=== PATIENT | female | born 1985 | race Caucasian/White ===

== ENCOUNTER 2022-08-13 01:30 | Inpatient (IN) ==
[2022-08-13] MEDS ORDERED: LIDOCAINE 1% LOCAL 20 ML VIAL INFIL PRN (01:46)
[2022-08-13] MEDS ORDERED: OXYTOCIN 30 UNITS/500 ML BAG IV PRN ×2 (01:46→01:51)
--- NOTE | 2022-08-13 01:49 | History & Physical Report ---
Date of Service August 13, 2022 Assessment & Plan (1) Velamentous insertion of umbilical cord: (2) resulting from in vitro fertilization, antepartum: (3) SROM (spontaneous rupture of membranes): Plan admit for srom and early labor. fetus category one. Has made change from last exam so will allow expectant management for now. pitocin if indicated. Monitor fluid closely. Patient hopes to go natural but open to epidural. anticipate . History of Present Illness Chief Complaint: srom and contractions Primary Care Provider: Veronica Sauer PA-C Patient is a 37yowf with iup at 40 0/7 presents to labor and delivery c/o srom at 10pm, constant gushing. Notes fluid blood tinged. Has also started noting contractions. +fm. Was in earlier yesterday for some prolonged monitoring. Was yanet at that time but not feeling it. and Delivery Plans Velamentous Cord Insertion *Growth US Q4wks @28wks *Weekly NSTs @36wks IVF/ICSI * [facility] [place]- WNL *Growth US Q4wks @28wks *Weekly NSTs @36wks *Weekly ANITA's @36wks(ICSI only) AMA *NSTs weekly at 36weeks Baby asa for ama and ivf Need for Rhogam d/t Rh negative mother -Rhogam given 06/02/2022- OB Labs: Blood Type A Negative 07/02/22 Antibody Screen POSITIVE A 07/02/22 Hemoglobin 11.8 g/dl (12.0-16.0) L 05/20/22 Hematocrit 33.8 % (34.1-44.9) L 05/20/22 Mean Corpuscular Volume 86.6 fL (80.0-100.0) 02/26/22 Platelet Count 305 K/uL (130-400) 02/26/22 Rubella IgG Antibody Immune (Immune) 02/26/22 Rapid Plasma Reagin Nonreactive (Nonreactive) 02/26/22 Hepatitis B Surface Antigen. NON-REACTIVE (NON-REACTIVE) 02/26/22 Hepatitis C Antibody Neg (Neg) 11/25/18 Hepatitis C Antibody (EIA) NON-REACTIVE (NON-REACTIVE) 02/26/22 HIV (1&2) Ag and Ab Confirmation NON-REACTIVE (NON-REACTIVE) 02/26/22 Glucose 1 Hour 50 gm Load 155 mg/dl (70-130) H 05/20/22 OB Optional Labs: Chlamydia trachomatis RNA Not Detected (NotDetected) 02/04/22 Neisseria gonorrhoeae RNA Not Detected (NotDetected) 02/04/22 Thyroid Stimulating Hormone (TSH) 2.250 uIu/ml (0.300-4.500) 08/12/21 Labs Reviewed: neg parent screening at [facility] on embryo negative. gbs negative Allergies Allergy/AdvReac Type Severity Reaction Status Date / Time dermabond Allergy Hives Uncoded 08/12/22 13:14 Home Medications Medication Instructions Recorded Confirmed Type doxylamine-pyridoxine (vit B6) 1 tab PO DAILY 02/02/22 08/12/22 History [Bonjesta] fluoxetine 40 mg capsule 40 mg PO DAILY 02/02/22 08/12/22 History prenat.vits,mark,mtv-ucxa-rhmln 1 tab PO DAILY 02/02/22 08/12/22 History Pepcid 1 tab PO HS 08/12/22 08/12/22 History Patient History Medical History Depression History of chicken pox Surgical History S/P tendon repair Family History Family/Other Asthma Hay fever Mother Hypertension Father Hypertension Depression Grandfather (Paternal) Diabetes Grandmother (Maternal) Skin cancer CHF (congestive heart failure) Denies family history of Ovarian cancer Breast cancer Colorectal cancer Social History Smoking Status: Never smoker Hx Alcohol Use: No Hx Substance Use: No Preferred Language: Kiswahili marital status: marital status details: Yovani Lynch (34) [phone] Current Living Situation: Spouse Current Living Situation Comment: lives with spouse, cats-to use mask and gloves current occupational status: employed 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 thin mec vs slightly dark blood tinged sve--3-4/100/-2 toco--q2-4min efm--130s with mod variability, small accels, no decels Code Status & VTE Plan VTE Prophylaxis Plan VTE Prophylaxis will be ordered: No Coding Level of Care Code None Diagnoses Velamentous insertion of umbilical cord O43.129 resulting from in vitro fertilization, antepartum O09.819 SROM (spontaneous rupture of membranes)
[2022-08-13 02:58] LABS: Hematocrit (blood only) 37.7 % (37.0-47.0); Hemoglobin 13.1 g/dl (12.0-16.0); Mean Corpuscular Hemoglobin 30.7 pg (25.0-34.0); Mean Corpuscular Hgb Conc 34.7 g/dL (32.0-36.0); Mean Corpuscular Volume 88.3 fL (80.0-100.0); Mean Platelet Volume 10.8 fL (9.4-12.4); Platelet Count 240 K/uL (130-400); RDW Coefficient of Variation 13.2 % (11.5-14.5); RDW Standard Deviation 42.1 fL (36.4-46.3); Red Blood Count 4.27 M/uL (4.20-5.40); White Blood Count 14.47 K/ul (4.8-10.8)
[2022-08-13] MEDS: LACTATED RINGER'S 1,000 ML IV PRN ×4 (03:00→13:20)
[2022-08-13] MEDS ORDERED: BUPIVACAINE 0.25% PF 30 ML VIAL ONE (03:11)
[2022-08-13] MEDS ORDERED: ePHEDrine sulfate 50 MG/ML AMP ONE (03:11)
[2022-08-13] MEDS ORDERED: LIDOCAINE 2%/EPINEPHRINE 1:200,000 20 ML PF ONE ×2 (03:11→14:19)
[2022-08-13] MEDS ORDERED: SODIUM CHLORIDE 0.9% PF INJ 10 ML VIAL ONE (03:11)
[2022-08-13] MEDS ORDERED: fentaNYL citrate PF 100 MCG/2 ML VIAL ONE (03:11)
[2022-08-13] MEDS ORDERED: fentaNYL 2MCG/ML ROPIVACAINE 1.25MG/ML 100 ML BAG EPI ONE (03:12)
[2022-08-13] MEDS ORDERED: TERBUTALINE SULFATE 1 MG/ML VIAL SQ ONE (03:21)
--- NOTE | 2022-08-13 03:26 | Labor Progress Brief Note ---
Date of Service August 13, 2022 Subjective Very painful, wants epidural Assessment & Plan (1) SROM (spontaneous rupture of membranes): (2) Velamentous insertion of umbilical cord: (3) resulting from in vitro fertilization, antepartum: Plan resolution of decel. Will get epidural and monitor. Discussed that this happens on occasion and I thought likely from a prolonged ctx or 2-3 right on top of one another. fht reassuring and category one now. Will monitor closely. If this continues/recurs, may need to consider c/s but if isolated, will continue to monitor. Patient expresses understanding. Admission and Anticipated Discharge Date Admission Date: August 13, 2022 Physical Exam Physical Exam: spontaneous decel to 70s that lasted for about 8 minutes until return to baseline. position changed and eventually knee chest. terb given as suspicion of a prolonged contraction. fetus did eventually recover to 130s with mod variability and now looks reassuring. cx--difficult exam secondary to patient discomfort, 3-4/100/-2 toco--difficult tracing now but was q 1-3min Results & Data Vital Signs (Past 12 Hours) Vital Signs Temp Pulse Resp BP Pulse Ox 08/13/22 03:19 103 H 98 08/13/22 03:18 90 129/78 93 08/13/22 03:14 94 H 99 08/13/22 03:09 102 H 99 08/13/22 03:04 98 08/13/22 03:04 77 08/13/22 03:04 80 93 08/13/22 02:00 36.9 C 08/13/22 01:52 82 135/85 08/13/22 01:50 20 Coding Level of Care Code None Diagnoses SROM (spontaneous rupture of membranes) Velamentous insertion of umbilical cord O43.129 resulting from in vitro fertilization, antepartum O09.819
[2022-08-13] MEDS ORDERED: diphenhydrAMINE 50 MG/ML VIAL IV PRN ×2 (03:40→17:59)
[2022-08-13] MEDS ORDERED: NALOXONE HCL 1 MG in SODIUM CHLORIDE 0.9% 1000ML 1,000 ML IV PRN ×2 (03:40→17:59)
[2022-08-13] MEDS ORDERED: ePHEDrine sulfate 50 MG/ML AMP IV PRN ×2 (03:40→17:59)
[2022-08-13] MEDS ORDERED: NALOXONE HCL 0.4 MG/1 ML VIAL/CARP IV PRN ×2 (03:40→17:59)
[2022-08-13] MEDS ORDERED: NALBUPHINE HCL INJ 10 MG/ML AMP IV PRN ×2 (03:40→17:59)
[2022-08-13] MEDS ORDERED: fentaNYL 2MCG/ML ROPIVACAINE 1.25MG/ML 100 ML BAG EPI PRN (03:40)
--- NOTE | 2022-08-13 03:40 | Anesthesiology Consultation ---
Date of Service August 13, 2022 Assessment & Plan ASA ASA2 Proposed Anesthesia Anesthesia Type: Labor Epidural Risk / Benefits Reviewed With: PT / POA / Parent / Guardian, Accepts Plan and Informed Consent Obtained History Height/Weight Height: 5 ft 4 in Weight: 87.09 kg Allergies Allergy/AdvReac Type Severity Reaction Status Date / Time dermabond Allergy Hives Uncoded 08/12/22 13:14 Medications Home Medications Medication Instructions Recorded Confirmed Last Taken fluoxetine 40 mg capsule 40 mg PO DAILY 02/02/22 08/13/22 08/12/22 08:00 prenat.vits,mark,knh-csfk-remri 1 tab PO DAILY 02/02/22 08/13/22 08/12/22 08:00 Pepcid 1 tab PO HS 08/12/22 08/12/22 08/11/22 20:00 Past Medical History Medical History Depression History of chicken pox Exercise / Class Metabolic Activity II 4-5 Yardwork/Stairs/Walk up hill Past Family History Family History Family/Other Asthma Hay fever Mother Hypertension Father Hypertension Depression Grandfather (Paternal) Diabetes Grandmother (Maternal) Skin cancer CHF (congestive heart failure) Denies family history of Ovarian cancer Breast cancer Colorectal cancer Past Surgical History Surgical History S/P tendon repair Past Anesthesia History No Hx of Anesthesia Complications and No Family Hx of Anesthesia Complications History of PONV No Hx of PONV and No Hx of Motion Sickness Social History Smoking Status: Never smoker Hx Alcohol Use: No Hx Substance Use: No substance use type: does not use Review of Systems denies fever/cough/ colds/ chest pain/ SOB/ RAMA denies RAMA Physical Exam Vital Signs Last Vital Signs Temp 36.9 C 08/13/22 02:00 Pulse 106 H 08/13/22 03:38 Resp 20 08/13/22 01:50 BP 128/78 08/13/22 03:38 Pulse Ox 100 08/13/22 03:34 ENMT Mouth: no TMJ abnormality and no dentition abnormality Thyromental Distance: > or= 3.5 Finger Breadths Mallampati Class: II Neck neck extension not limited Respiratory normal respiratory effort; no respiratory distress Auscultation: lungs clear to auscultation bilaterally Cardiovascular Rate/Rhythm: regular rate and regular rhythm Neurologic moves all extremities Psychiatric Orientation: alert and oriented x 3 Testing Laboratory Results 08/13/22 01:57
[2022-08-13] MEDS: ONDANSETRON INJ 2 MG/ML 2 ML VIAL IV PRN ×2 (04:12→09:56)
--- NOTE | 2022-08-13 05:47 | Labor Progress Brief Note ---
Date of Service August 13, 2022 Subjective comfortable with epidural Assessment & Plan (1) SROM (spontaneous rupture of membranes): (2) resulting from in vitro fertilization, antepartum: (3) Velamentous insertion of umbilical cord: Plan iupc placed. If contractions not adequate, will probably need pitocin. Fetus category one at this point. Admission and Anticipated Discharge Date Admission Date: August 13, 2022 Physical Exam Physical Exam: cx--5/100/-1 toco--difficult tracing. Think about every 4 or so minutes. EFm--140s with mod variability, 10x10 accels, no further decels Results & Data Vital Signs (Past 12 Hours) Vital Signs Temp Pulse Resp BP Pulse Ox 08/13/22 05:39 113 H 97 08/13/22 05:34 101 H 96 08/13/22 05:31 87 102/60 08/13/22 05:30 18 08/13/22 05:30 18 08/13/22 05:29 91 H 93 08/13/22 05:24 92 H 93 08/13/22 05:19 87 96 08/13/22 05:16 93 H 104/60 08/13/22 05:14 94 H 96 08/13/22 05:00 18 08/13/22 05:00 18 08/13/22 05:09 90 95 08/13/22 05:04 95 H 94 08/13/22 05:03 97 H 99/57 L 91 08/13/22 04:59 94 H 94 08/13/22 04:54 97 H 94 08/13/22 04:49 96 H 93 08/13/22 04:46 95 H 97/54 L 08/13/22 04:44 96 H 93 08/13/22 04:39 102 H 91 08/13/22 04:34 98 H 95 08/13/22 04:33 96 H 94 08/13/22 04:32 94 H 100/59 L 08/13/22 04:29 95 H 20 94 08/13/22 04:28 97 H 94 08/13/22 04:24 98 H 95 08/13/22 04:23 98 H 94 08/13/22 04:19 109 H 96 08/13/22 04:17 105 H 108/58 L 08/13/22 04:15 110 H 93 08/13/22 04:14 109 H 96 08/13/22 04:09 135 H 94 08/13/22 04:07 106 H 90 08/13/22 04:00 18 08/13/22 04:00 37.1 C 18 08/13/22 04:04 93 H 96 08/13/22 03:59 104 H 130/76 97 08/13/22 03:54 110 H 129/75 96 08/13/22 03:49 118 H 131/75 95 08/13/22 03:44 96 08/13/22 03:44 116 H 08/13/22 03:44 123 H 136/81 08/13/22 03:42 139 H 140/89 08/13/22 03:41 136 H 142/89 H 08/13/22 03:39 96 H 100 08/13/22 03:38 106 H 128/78 08/13/22 03:36 89 136/75 08/13/22 03:34 100 08/13/22 03:34 93 H 08/13/22 03:34 85 139/77 08/13/22 03:32 93 H 141/87 H 08/13/22 03:30 108 H 137/79 08/13/22 03:29 97 H 99 08/13/22 03:28 103 H 125/74 08/13/22 03:24 104 H 100 08/13/22 03:19 103 H 98 08/13/22 03:18 90 129/78 93 08/13/22 03:14 94 H 99 08/13/22 03:09 102 H 99 08/13/22 03:04 98 08/13/22 03:04 77 08/13/22 03:04 80 93 08/13/22 02:00 36.9 C 08/13/22 01:52 82 135/85 08/13/22 01:50 20 Coding Level of Care Code None Diagnoses SROM (spontaneous rupture of membranes) resulting from in vitro fertilization, antepartum O09.819 Velamentous insertion of umbilical cord O43.129
--- NOTE | 2022-08-13 11:46 | Labor Progress Brief Note ---
Date of Service August 13, 2022 Subjective Patient feeling pressure Assessment & Plan (1) SROM (spontaneous rupture of membranes): Plan: Begin second stage of labor and assess for descent Admission and Anticipated Discharge Date Admission Date: August 13, 2022 Physical Exam Genitourinary: [place] Q2-3 Cvx 10/100/+2 Test push with excellent effort Narrow pubic arch/outlet noted Fluid clear FHT Cat 1 Results & Data Vital Signs (Past 12 Hours) Vital Signs Temp Pulse Resp BP Pulse Ox 08/13/22 11:39 84 94 08/13/22 11:34 89 94 08/13/22 11:31 92 H 121/73 08/13/22 11:29 111 H 96 08/13/22 11:24 84 95 08/13/22 11:20 95 H 89 L 08/13/22 11:19 89 95 08/13/22 11:16 84 127/85 08/13/22 11:14 91 H 95 08/13/22 11:12 80 88 L 08/13/22 11:09 86 98 08/13/22 11:04 84 97 08/13/22 10:59 98.4 F 88 20 96 08/13/22 10:56 93 H 89 L 08/13/22 10:54 87 96 08/13/22 10:49 87 97 08/13/22 10:47 78 120/69 08/13/22 10:44 84 98 08/13/22 10:39 84 98 08/13/22 10:34 78 96 08/13/22 10:31 87 114/79 08/13/22 10:29 81 96 08/13/22 10:24 87 98 08/13/22 10:19 81 96 08/13/22 10:17 81 114/71 87 L 08/13/22 10:14 82 97 08/13/22 10:09 82 96 08/13/22 10:04 86 97 08/13/22 10:02 84 113/70 08/13/22 09:59 85 18 96 08/13/22 09:54 90 96 08/13/22 09:49 90 95 08/13/22 09:47 100 H 121/84 08/13/22 09:44 96 H 96 08/13/22 09:39 105 H 95 08/13/22 09:34 107 H 95 08/13/22 09:32 111 H 149/99 H 08/13/22 09:29 95 08/13/22 09:29 98 H 08/13/22 09:29 100 H 89 L 08/13/22 09:24 83 96 08/13/22 09:19 82 96 08/13/22 09:17 93 H 122/81 08/13/22 09:14 80 96 08/13/22 09:09 93 H 95 08/13/22 09:04 89 95 08/13/22 09:02 98.2 F 113 H 20 123/73 08/13/22 08:59 88 94 08/13/22 08:54 88 95 08/13/22 08:49 93 H 93 08/13/22 08:46 110 H 116/69 08/13/22 08:44 104 H 96 08/13/22 08:39 99 H 97 08/13/22 08:34 115 H 95 08/13/22 08:30 100 H 89 L 08/13/22 08:31 96 H 132/84 08/13/22 08:29 79 95 08/13/22 08:25 97 H 89 L 08/13/22 08:24 83 95 08/13/22 08:19 81 96 08/13/22 08:14 87 94 08/13/22 08:13 92 H 90 08/13/22 08:09 86 97 08/13/22 08:04 85 97 08/13/22 08:01 88 85 L 08/13/22 07:59 89 100 08/13/22 07:56 84 20 119/78 08/13/22 07:54 94 H 95 08/13/22 07:55 93 H 86 L 08/13/22 07:49 83 93 08/13/22 07:44 84 94 08/13/22 07:39 78 95 08/13/22 07:34 79 93 08/13/22 07:33 88 91 08/13/22 07:29 90 92 08/13/22 07:24 88 93 08/13/22 07:19 85 93 08/13/22 07:14 82 93 08/13/22 07:09 92 H 95 08/13/22 07:04 87 94 08/13/22 07:02 98.1 F 86 20 131/82 08/13/22 06:59 92 03/30/23 06:59 86 08/13/22 06:59 89 91 08/13/22 06:54 87 92 08/13/22 06:52 91 H 89 L 08/13/22 06:49 87 88 L 08/13/22 06:46 87 128/83 91 08/13/22 06:44 86 93 08/13/22 06:39 95 H 94 08/13/22 06:34 105 H 92 08/13/22 06:33 100 H 126/85 90 08/13/22 06:29 94 H 18 95 08/13/22 06:24 94 H 94 08/13/22 06:19 110 H 91 08/13/22 06:16 101 H 118/69 08/13/22 06:14 105 H 94 08/13/22 06:09 107 H 94 08/13/22 06:04 82 94 08/13/22 06:01 107 H 133/82 08/13/22 05:59 98.1 F 102 H 94 08/13/22 05:54 110 H 95 08/13/22 05:49 118 H 94 08/13/22 05:46 127 H 133/87 08/13/22 05:44 108 H 93 08/13/22 05:39 113 H 97 08/13/22 05:34 101 H 96 08/13/22 05:31 87 102/60 08/13/22 05:30 18 08/13/22 05:30 18 08/13/22 05:29 91 H 93 08/13/22 05:24 92 H 93 08/13/22 05:19 87 96 08/13/22 05:16 93 H 104/60 08/13/22 05:14 94 H 96 08/13/22 05:00 18 08/13/22 05:00 18 08/13/22 05:09 90 95 08/13/22 05:04 95 H 94 08/13/22 05:03 97 H 99/57 L 91 08/13/22 04:59 94 H 94 08/13/22 04:54 97 H 94 08/13/22 04:49 96 H 93 08/13/22 04:46 95 H 97/54 L 08/13/22 04:44 96 H 93 08/13/22 04:39 102 H 91 08/13/22 04:34 98 H 95 08/13/22 04:33 96 H 94 08/13/22 04:32 94 H 100/59 L 08/13/22 04:29 95 H 20 94 08/13/22 04:28 97 H 94 08/13/22 04:24 98 H 95 08/13/22 04:23 98 H 94 08/13/22 04:19 109 H 96 08/13/22 04:17 105 H 108/58 L 08/13/22 04:15 110 H 93 08/13/22 04:14 109 H 96 08/13/22 04:09 135 H 94 08/13/22 04:07 106 H 90 08/13/22 04:00 18 08/13/22 04:00 98.8 F 18 08/13/22 04:04 93 H 96 08/13/22 03:59 104 H 130/76 97 08/13/22 03:54 110 H 129/75 96 08/13/22 03:49 118 H 131/75 95 08/13/22 03:44 96 08/13/22 03:44 116 H 08/13/22 03:44 123 H 136/81 08/13/22 03:42 139 H 140/89 08/13/22 03:41 136 H 142/89 H 08/13/22 03:39 96 H 100 08/13/22 03:38 106 H 128/78 08/13/22 03:36 89 136/75 08/13/22 03:34 100 08/13/22 03:34 93 H 08/13/22 03:34 85 139/77 08/13/22 03:32 93 H 141/87 H 08/13/22 03:30 108 H 137/79 08/13/22 03:29 97 H 99 08/13/22 03:28 103 H 125/74 08/13/22 03:24 104 H 100 08/13/22 03:19 103 H 98 08/13/22 03:18 90 129/78 93 08/13/22 03:14 94 H 99 08/13/22 03:09 102 H 99 08/13/22 03:04 98 08/13/22 03:04 77 08/13/22 03:04 80 93 08/13/22 02:00 98.4 F 08/13/22 01:52 82 135/85 08/13/22 01:50 20 Coding Level of Care Code None Diagnoses SROM (spontaneous rupture of membranes)
--- NOTE | 2022-08-13 13:39 | Labor Progress Brief Note ---
Date of Service August 13, 2022 Subjective Pushing effectively, vomiting often. Assessed at both 1 hour and 1.5 hours of pushing. Assessment & Plan Admission and Anticipated Discharge Date Admission Date: August 13, 2022 Physical Exam Genitourinary: Complete and pushing with excellent effort, molding noted, caput noted. At both 1 hour and 1.5 hour timepoints, thick meconium noted, which was not seen prior to 2nd stage. At both timepoints, head able to be elevated easily between contractions. Patient and support persons counseled each time on meconium, molding, head still able to be elevated, some concern for CPD / may or may not be able to deliver successfully. However at both times, good variability and reassuring / appropriate tracing; no immediate need to stop second stage. Patient has energy and would like to continue pushing. Agrees to reassessment at 2hr point and if not significantly progressed at that point patient may be interested in proceeding to . Results & Data Vital Signs (Past 12 Hours) Vital Signs Temp Pulse Resp BP Pulse Ox 08/13/22 13:30 123 H 90 08/13/22 13:25 140 H 92 08/13/22 13:06 20 08/13/22 13:06 98.4 F 20 08/13/22 13:20 91 08/13/22 13:20 117 H 08/13/22 13:20 110 H 89 L 08/13/22 13:17 118 H 113/69 08/13/22 13:15 124 H 92 08/13/22 13:10 108 H 92 08/13/22 13:05 121 H 93 08/13/22 13:00 117 H 91 08/13/22 12:55 144 H 89 L 08/13/22 12:50 127 H 93 08/13/22 12:51 118 H 91 08/13/22 12:45 123 H 93 08/13/22 12:46 131 H 128/80 90 08/13/22 12:40 127 H 94 08/13/22 12:39 122 H 90 08/13/22 12:34 125 H 94 08/13/22 12:31 113 H 126/72 08/13/22 12:29 120 H 93 08/13/22 12:24 119 H 89 L 08/13/22 12:19 119 H 93 08/13/22 12:14 104 H 94 03/30/23 12:09 111 H 95 08/13/22 12:04 128 H 96 08/13/22 12:05 124 H 91 08/13/22 12:02 90 137/81 08/13/22 11:59 93 H 95 08/13/22 11:54 110 H 95 08/13/22 11:49 115 H 91 08/13/22 11:46 105 H 134/86 08/13/22 11:44 89 95 08/13/22 11:39 84 94 08/13/22 11:34 89 94 08/13/22 11:31 92 H 121/73 08/13/22 11:29 111 H 96 08/13/22 11:24 84 95 08/13/22 11:20 95 H 89 L 08/13/22 11:19 89 95 08/13/22 11:16 84 127/85 08/13/22 11:14 91 H 95 08/13/22 11:12 80 88 L 08/13/22 11:09 86 98 08/13/22 11:04 84 97 08/13/22 10:59 98.4 F 88 20 96 08/13/22 10:56 93 H 89 L 08/13/22 10:54 87 96 08/13/22 10:49 87 97 08/13/22 10:47 78 120/69 08/13/22 10:44 84 98 08/13/22 10:39 84 98 08/13/22 10:34 78 96 08/13/22 10:31 87 114/79 08/13/22 10:29 81 96 08/13/22 10:24 87 98 08/13/22 10:19 81 96 08/13/22 10:17 81 114/71 87 L 08/13/22 10:14 82 97 08/13/22 10:09 82 96 08/13/22 10:04 86 97 08/13/22 10:02 84 113/70 08/13/22 09:59 85 18 96 08/13/22 09:54 90 96 08/13/22 09:49 90 95 08/13/22 09:47 100 H 121/84 08/13/22 09:44 96 H 96 08/13/22 09:39 105 H 95 08/13/22 09:34 107 H 95 08/13/22 09:32 111 H 149/99 H 08/13/22 09:29 95 08/13/22 09:29 98 H 08/13/22 09:29 100 H 89 L 08/13/22 09:24 83 96 08/13/22 09:19 82 96 08/13/22 09:17 93 H 122/81 08/13/22 09:14 80 96 08/13/22 09:09 93 H 95 08/13/22 09:04 89 95 08/13/22 09:02 98.2 F 113 H 20 123/73 08/13/22 08:59 88 94 08/13/22 08:54 88 95 08/13/22 08:49 93 H 93 08/13/22 08:46 110 H 116/69 08/13/22 08:44 104 H 96 08/13/22 08:39 99 H 97 08/13/22 08:34 115 H 95 08/13/22 08:30 100 H 89 L 08/13/22 08:31 96 H 132/84 08/13/22 08:29 79 95 08/13/22 08:25 97 H 89 L 08/13/22 08:24 83 95 08/13/22 08:19 81 96 08/13/22 08:14 87 94 08/13/22 08:13 92 H 90 08/13/22 08:09 86 97 08/13/22 08:04 85 97 08/13/22 08:01 88 85 L 08/13/22 07:59 89 100 08/13/22 07:56 84 20 119/78 08/13/22 07:54 94 H 95 08/13/22 07:55 93 H 86 L 08/13/22 07:49 83 93 08/13/22 07:44 84 94 08/13/22 07:39 78 95 08/13/22 07:34 79 93 08/13/22 07:33 88 91 08/13/22 07:29 90 92 08/13/22 07:24 88 93 08/13/22 07:19 85 93 08/13/22 07:14 82 93 08/13/22 07:09 92 H 95 08/13/22 07:04 87 94 08/13/22 07:02 98.1 F 86 20 131/82 08/13/22 06:59 92 08/13/22 06:59 86 08/13/22 06:59 89 91 08/13/22 06:54 87 92 08/13/22 06:52 91 H 89 L 08/13/22 06:49 87 88 L 08/13/22 06:46 87 128/83 91 08/13/22 06:44 86 93 08/13/22 06:39 95 H 94 08/13/22 06:34 105 H 92 08/13/22 06:33 100 H 126/85 90 08/13/22 06:29 94 H 18 95 08/13/22 06:24 94 H 94 08/13/22 06:19 110 H 91 08/13/22 06:16 101 H 118/69 08/13/22 06:14 105 H 94 08/13/22 06:09 107 H 94 08/13/22 06:04 82 94 08/13/22 06:01 107 H 133/82 08/13/22 05:59 98.1 F 102 H 94 08/13/22 05:54 110 H 95 08/13/22 05:49 118 H 94 08/13/22 05:46 127 H 133/87 08/13/22 05:44 108 H 93 08/13/22 05:39 113 H 97 08/13/22 05:34 101 H 96 08/13/22 05:31 87 102/60 08/13/22 05:30 18 08/13/22 05:30 18 08/13/22 05:29 91 H 93 08/13/22 05:24 92 H 93 08/13/22 05:19 87 96 08/13/22 05:16 93 H 104/60 08/13/22 05:14 94 H 96 08/13/22 05:00 18 08/13/22 05:00 18 08/13/22 05:09 90 95 08/13/22 05:04 95 H 94 08/13/22 05:03 97 H 99/57 L 91 08/13/22 04:59 94 H 94 08/13/22 04:54 97 H 94 08/13/22 04:49 96 H 93 08/13/22 04:46 95 H 97/54 L 08/13/22 04:44 96 H 93 08/13/22 04:39 102 H 91 08/13/22 04:34 98 H 95 08/13/22 04:33 96 H 94 08/13/22 04:32 94 H 100/59 L 08/13/22 04:29 95 H 20 94 08/13/22 04:28 97 H 94 08/13/22 04:24 98 H 95 08/13/22 04:23 98 H 94 08/13/22 04:19 109 H 96 08/13/22 04:17 105 H 108/58 L 08/13/22 04:15 110 H 93 08/13/22 04:14 109 H 96 08/13/22 04:09 135 H 94 08/13/22 04:07 106 H 90 08/13/22 04:00 18 08/13/22 04:00 98.8 F 18 08/13/22 04:04 93 H 96 08/13/22 03:59 104 H 130/76 97 08/13/22 03:54 110 H 129/75 96 08/13/22 03:49 118 H 131/75 95 08/13/22 03:44 96 08/13/22 03:44 116 H 08/13/22 03:44 123 H 136/81 08/13/22 03:42 139 H 140/89 08/13/22 03:41 136 H 142/89 H 08/13/22 03:39 96 H 100 08/13/22 03:38 106 H 128/78 08/13/22 03:36 89 136/75 08/13/22 03:34 100 08/13/22 03:34 93 H 08/13/22 03:34 85 139/77 08/13/22 03:32 93 H 141/87 H 08/13/22 03:30 108 H 137/79 08/13/22 03:29 97 H 99 08/13/22 03:28 103 H 125/74 08/13/22 03:24 104 H 100 08/13/22 03:19 103 H 98 08/13/22 03:18 90 129/78 93 08/13/22 03:14 94 H 99 08/13/22 03:09 102 H 99 08/13/22 03:04 98 08/13/22 03:04 77 08/13/22 03:04 80 93 08/13/22 02:00 98.4 F 08/13/22 01:52 82 135/85 08/13/22 01:50 20 Coding Level of Care Code None Diagnoses
--- NOTE | 2022-08-13 14:07 | Labor Progress Brief Note ---
Date of Service August 13, 2022 Subjective Pressure, pushing effectively, lots of n/v. Assessment & Plan (1) Failure of descent in labor, delivered, current hospitalization: Plan: Patient with 2 hours excellent pushing effort but no descent of fetus. Also has developed meconium in fluid. Patient and FOB counseled, and elect to proceed to at this time rather than continuing on through further pushing attempts. Consent completed, all questions answered. Admission and Anticipated Discharge Date Admission Date: August 13, 2022 Physical Exam Genitourinary: /+2 with molding/caput. Although the forwardmost point of the caput has advanced a tiny bit, the head continues to be easy to elevate up and away between contractions and dark meconium-stained fluid flows at these times. No true descent of the fetus has occured in 2 hours of pushing, rather the caput and molding have become more pronounced. FHT appropriate for 2nd stage with good variability. Pit @ 3, turned off after discussion with patient and support persons. Results & Data Vital Signs (Past 12 Hours) Vital Signs Temp Pulse Resp BP Pulse Ox 08/13/22 14:00 116 H 92 08/13/22 13:55 134 H 94 08/13/22 13:54 121 H 87 L 08/13/22 13:50 118 H 94 08/13/22 13:47 107 H 124/90 84 L 08/13/22 13:45 130 H 93 08/13/22 13:40 117 H 93 08/13/22 13:35 130 H 93 08/13/22 13:33 119 H 88 L 08/13/22 13:30 123 H 90 08/13/22 13:25 140 H 92 08/13/22 13:06 20 08/13/22 13:06 98.4 F 20 08/13/22 13:20 91 08/13/22 13:20 117 H 08/13/22 13:20 110 H 89 L 08/13/22 13:17 118 H 113/69 08/13/22 13:15 124 H 92 08/13/22 13:10 108 H 92 08/13/22 13:05 121 H 93 08/13/22 13:00 117 H 91 08/13/22 12:55 144 H 89 L 08/13/22 12:50 127 H 93 08/13/22 12:51 118 H 91 08/13/22 12:45 123 H 93 08/13/22 12:46 131 H 128/80 90 08/13/22 12:40 127 H 94 08/13/22 12:39 122 H 90 08/13/22 12:34 125 H 94 08/13/22 12:31 113 H 126/72 08/13/22 12:29 120 H 93 08/13/22 12:24 119 H 89 L 08/13/22 12:19 119 H 93 08/13/22 12:14 104 H 94 08/13/22 12:09 111 H 95 08/13/22 12:04 128 H 96 08/13/22 12:05 124 H 91 08/13/22 12:02 90 137/81 08/13/22 11:59 93 H 95 08/13/22 11:54 110 H 95 08/13/22 11:49 115 H 91 08/13/22 11:46 105 H 134/86 08/13/22 11:44 89 95 08/13/22 11:39 84 94 08/13/22 11:34 89 94 08/13/22 11:31 92 H 121/73 08/13/22 11:29 111 H 96 08/13/22 11:24 84 95 08/13/22 11:20 95 H 89 L 08/13/22 11:19 89 95 08/13/22 11:16 84 127/85 08/13/22 11:14 91 H 95 08/13/22 11:12 80 88 L 08/13/22 11:09 86 98 08/13/22 11:04 84 97 08/13/22 10:59 98.4 F 88 20 96 08/13/22 10:56 93 H 89 L 08/13/22 10:54 87 96 08/13/22 10:49 87 97 08/13/22 10:47 78 120/69 08/13/22 10:44 84 98 08/13/22 10:39 84 98 08/13/22 10:34 78 96 08/13/22 10:31 87 114/79 08/13/22 10:29 81 96 08/13/22 10:24 87 98 08/13/22 10:19 81 96 08/13/22 10:17 81 114/71 87 L 08/13/22 10:14 82 97 08/13/22 10:09 82 96 08/13/22 10:04 86 97 08/13/22 10:02 84 113/70 08/13/22 09:59 85 18 96 08/13/22 09:54 90 96 08/13/22 09:49 90 95 08/13/22 09:47 100 H 121/84 08/13/22 09:44 96 H 96 08/13/22 09:39 105 H 95 08/13/22 09:34 107 H 95 08/13/22 09:32 111 H 149/99 H 08/13/22 09:29 95 08/13/22 09:29 98 H 08/13/22 09:29 100 H 89 L 08/13/22 09:24 83 96 08/13/22 09:19 82 96 08/13/22 09:17 93 H 122/81 08/13/22 09:14 80 96 08/13/22 09:09 93 H 95 08/13/22 09:04 89 95 08/13/22 09:02 98.2 F 113 H 20 123/73 08/13/22 08:59 88 94 08/13/22 08:54 88 95 08/13/22 08:49 93 H 93 08/13/22 08:46 110 H 116/69 08/13/22 08:44 104 H 96 08/13/22 08:39 99 H 97 08/13/22 08:34 115 H 95 08/13/22 08:30 100 H 89 L 08/13/22 08:31 96 H 132/84 08/13/22 08:29 79 95 08/13/22 08:25 97 H 89 L 08/13/22 08:24 83 95 08/13/22 08:19 81 96 08/13/22 08:14 87 94 08/13/22 08:13 92 H 90 08/13/22 08:09 86 97 08/13/22 08:04 85 97 08/13/22 08:01 88 85 L 08/13/22 07:59 89 100 08/13/22 07:56 84 20 119/78 08/13/22 07:54 94 H 95 08/13/22 07:55 93 H 86 L 08/13/22 07:49 83 93 08/13/22 07:44 84 94 08/13/22 07:39 78 95 08/13/22 07:34 79 93 08/13/22 07:33 88 91 08/13/22 07:29 90 92 08/13/22 07:24 88 93 08/13/22 07:19 85 93 08/13/22 07:14 82 93 08/13/22 07:09 92 H 95 08/13/22 07:04 87 94 08/13/22 07:02 98.1 F 86 20 131/82 08/13/22 06:59 92 08/13/22 06:59 86 08/13/22 06:59 89 91 08/13/22 06:54 87 92 08/13/22 06:52 91 H 89 L 08/13/22 06:49 87 88 L 08/13/22 06:46 87 128/83 91 08/13/22 06:44 86 93 08/13/22 06:39 95 H 94 08/13/22 06:34 105 H 92 08/13/22 06:33 100 H 126/85 90 08/13/22 06:29 94 H 18 95 08/13/22 06:24 94 H 94 08/13/22 06:19 110 H 91 08/13/22 06:16 101 H 118/69 08/13/22 06:14 105 H 94 08/13/22 06:09 107 H 94 08/13/22 06:04 82 94 08/13/22 06:01 107 H 133/82 08/13/22 05:59 98.1 F 102 H 94 08/13/22 05:54 110 H 95 08/13/22 05:49 118 H 94 08/13/22 05:46 127 H 133/87 08/13/22 05:44 108 H 93 08/13/22 05:39 113 H 97 08/13/22 05:34 101 H 96 08/13/22 05:31 87 102/60 08/13/22 05:30 18 08/13/22 05:30 18 08/13/22 05:29 91 H 93 08/13/22 05:24 92 H 93 08/13/22 05:19 87 96 08/13/22 05:16 93 H 104/60 08/13/22 05:14 94 H 96 08/13/22 05:00 18 08/13/22 05:00 18 08/13/22 05:09 90 95 08/13/22 05:04 95 H 94 08/13/22 05:03 97 H 99/57 L 91 08/13/22 04:59 94 H 94 08/13/22 04:54 97 H 94 08/13/22 04:49 96 H 93 08/13/22 04:46 95 H 97/54 L 08/13/22 04:44 96 H 93 08/13/22 04:39 102 H 91 08/13/22 04:34 98 H 95 08/13/22 04:33 96 H 94 08/13/22 04:32 94 H 100/59 L 08/13/22 04:29 95 H 20 94 08/13/22 04:28 97 H 94 08/13/22 04:24 98 H 95 08/13/22 04:23 98 H 94 08/13/22 04:19 109 H 96 08/13/22 04:17 105 H 108/58 L 08/13/22 04:15 110 H 93 08/13/22 04:14 109 H 96 08/13/22 04:09 135 H 94 08/13/22 04:07 106 H 90 08/13/22 04:00 18 08/13/22 04:00 98.8 F 18 08/13/22 04:04 93 H 96 08/13/22 03:59 104 H 130/76 97 08/13/22 03:54 110 H 129/75 96 08/13/22 03:49 118 H 131/75 95 08/13/22 03:44 96 08/13/22 03:44 116 H 08/13/22 03:44 123 H 136/81 08/13/22 03:42 139 H 140/89 08/13/22 03:41 136 H 142/89 H 08/13/22 03:39 96 H 100 08/13/22 03:38 106 H 128/78 08/13/22 03:36 89 136/75 08/13/22 03:34 100 08/13/22 03:34 93 H 08/13/22 03:34 85 139/77 08/13/22 03:32 93 H 141/87 H 08/13/22 03:30 108 H 137/79 08/13/22 03:29 97 H 99 08/13/22 03:28 103 H 125/74 08/13/22 03:24 104 H 100 08/13/22 03:19 103 H 98 08/13/22 03:18 90 129/78 93 08/13/22 03:14 94 H 99 08/13/22 03:09 102 H 99 08/13/22 03:04 98 08/13/22 03:04 77 08/13/22 03:04 80 93 Coding Level of Care Code None Diagnoses Failure of descent in labor, delivered, current hospitalization O62.2
[2022-08-13] MEDS ORDERED: CITRIC ACID/SODIUM CITRATE 15 ML UDC PO SCH (14:15)
[2022-08-13] MEDS ORDERED: LACTATED RINGER'S 1,000 ML IV SCH ×2 (14:15→16:15)
[2022-08-13] MEDS ORDERED: MoRPHine SULFATE PF 1 MG/ML 10 ML AMP/VIAL ONE (14:19)
[2022-08-13] MEDS ORDERED: DEXAMETHASONE SOD INJ 4 MG/ML VIAL ONE (15:16)
[2022-08-13] MEDS ORDERED: ONDANSETRON INJ 2 MG/ML 2 ML VIAL ONE (15:16)
[2022-08-13] MEDS ORDERED: BENZOCAINE 20% AER SPR 82.5 GM CAN EXT PRN (16:12)
[2022-08-13] MEDS ORDERED: SENNA 8.6 MG TAB PO PRN (16:12)
[2022-08-13] MEDS ORDERED: HYDROCORTISONE ACETATE 25 MG SUPP PR PRN (16:12)
[2022-08-13] MEDS ORDERED: MAGNESIUM HYDROXIDE SUSP 30 ML UDC PO PRN (16:12)
[2022-08-13] MEDS ORDERED: DIPHTHERIA/TETANUS/PERTUSSIS 0.5mL SYR/VIAL (Age 7+yrs) IM ONE (16:12)
[2022-08-13] MEDS ORDERED: BENZOCAINE/MENTHOL 18 LOZ/1 BOX MT PRN (16:13)
--- NOTE | 2022-08-13 16:23 | Operative Report ---
PG Post Operative Report Pre & Post Diagnosis Operation Date: 08/13/22 14:10 Pre-Op Diagnosis: SROM, IOL AMA IVF Velamentous insertion of cord Failure of descent Thick meconium fluid Post-Op Diagnosis: Same I identified the patient and participated in the time-out.: Yes Procedure Operation Date: 08/13/22 14:10 Actual Procedures 1' Low Transverse Section with bilateral cervical extensions Surgeon Samai Dove MD Unit Operator Noris Hassan Estimated Blood Loss 600 Findings Consistent with Post-Op Diagnosis Specimens Placenta, Cord blood, Cord gases Anesthesia Type L&D Only Epidural Exists Complications none Disposition Accompanied Patient To Recovery: Yes Disposition: L&D Description of Procedure The patient was placed operating table in the supine position with a leftward tilt. She was prepped and draped in standard sterile fashion. The anesthetic was tested and found to be adequate. A time-out was held, identifying correct patient, procedure, positioning and preoperative antibiotics. There were no concerns. A Pfannenstiel skin incision was made with a knife and taken down to the underlying layer of fascia. The fascia was incised in the midline with the knife and taken out laterally with scissors. The superior edge of the fascial incision was grasped, elevated and dissected off the underlying rectus both superiorly and inferiorly. The muscles were bluntly in the midline. The peritoneum was entered bluntly. The incision was then stretched. The bladder retractor was placed. The vesicouterine peritoneum was identified, en tered with scissors and taken out laterally with scissors. The bladder flap was created digitally. A hysterotomy incision was created transversely in the lower uterine segment, final entry being accomplished in a blunt manner with the raw scales operator's fingers. Heavily meconium stained amniotic fluid was encountered. The raw scales operator's hand was used to elevate the head to the hysterotomy. The head was delivered using mild fundal pressure and assisted by a Kiwi cup, and the shoulders and body followed without difficulty. The cord was clamped and cut while bulb suction was provided, and the was then handed off to the awaiting dockworker. Cord blood was obtained. The placenta was Manually extracted. The uterus was exteriorized and cleared of all clot and debris with moistened laparotomy sponges. The hysterotomy incision was found to have bilateral cervical extensions. The incision was repaired in two layers, the first in a running locked layer, the second in an imbricating la estrada, beginning at the apex of the left extension and continuing in line to the apex of the right extension. Continued bleeding from the area near the apex of the left extension was noted, but visualization was difficult. The patient continued to have frequent vomiting through much of her section which was making it difficult to hold a surgical field still for more than a second or two between valsalva episodes. I did then ask for Dr. Espinal to be pulled from the clinic and asked to come to the hospital to provide assistance. Until her arrival, pressure was held over the SHAUNA and further antiemetic measures were utilized by the anesthesia team. On Dr. Espinal's arrival several minutes later, we unpacked the SHAUNA / vesicouterine space and systematically examined the area of the entire hysterotomy, which by then was holding much more still as the patient's nausea was better controlled. A small superficial bleeding vessel was sutured over along the L extension, obtaining excellent hemostasis. The ovaries and tubes were seen to be normal bilaterally. The uterus was gently replaced in the abdomen, and the gutters were cleared of clot and debris. A final inspection of the hysterotomy revealed good hemostasis from end to end. The rectus muscles were allowed to reapproximate naturally. The fascia was then reapproximated with 1 Vicryl in a running nonlocked manner. The fascia was examined and found to be free of defect following closure. The subcutaneous tissue was copiously irrigated and reapproximated with 0-chromic, then the skin edges were closed with 4-0 monocryl in a subcuticular fashion. A steri-strip, 4x4 and medipore dressing was applied due to the patient's allergy to dermabond. The iglesias was found to be draining clear yellow urine at completion of the procedure. I attest to the content of the Intraoperative Record and any orders documented therein. Any exceptions are noted below. I attest to the content of the Intraoperative Record and any orders documented therein. Any exceptions are noted below. OB Procedure Charges 92024
--- NOTE | 2022-08-13 16:42 | Anesthesia Procedure Note ---
Date of Service August 13, 2022 Anesthesia Post Epidural Note Vital Signs Vital Signs: Temp Pulse Resp BP Pulse Ox 36.9 C 96 H 20 109/72 94 08/13/22 13:06 08/13/22 16:41 08/13/22 13:06 08/13/22 16:35 08/13/22 16:41 Notes Mental Status: alert / awake / arousable Nausea / Vomiting: adequately controlled Pain: adequately controlled Airway Patency, RR, SpO2: stable & adequate BP & HR: stable & adequate Hydration State: stable & adequate Neuraxial Anesthesia: was administered and sensory block is resolving Anesthetic Complications: no major complications apparent and Pt Satisfied with anesthetic care Epidural: Removed without complications and With tip intact
[2022-08-13] MEDS ORDERED: PROMETHAZINE HCL 25 MG in SODIUM CHLORIDE 0.9% 50 ML IV ONE (17:15)
[2022-08-13] MEDS: OXYTOCIN 20 UNITS in LACTATED RINGER'S 1,000 ML IV SCH (17:17)
[2022-08-13] MEDS ORDERED: MoRPHine SULFATE PF 1 MG/ML 10 ML AMP/VIAL INT SPINAL ONE (17:59)
[2022-08-13] MEDS ORDERED: MEPERIDINE HCL 25 MG/ML CARP/VIAL IV PRN (17:59)
[2022-08-13] MEDS ORDERED: NALOXONE HCL 0.08 MG in SYRINGE 1.8 ML IV PRN (17:59)
[2022-08-13] MEDS ORDERED: HYDROmorphone INJ 0.5 MG/0.5 ML SYR IV PRN (17:59)
[2022-08-13] MEDS ORDERED: LACTATED RINGER'S 500 ML IV PRN (17:59)
[2022-08-13] MEDS ORDERED: KETOROLAC 30 MG/ML VIAL IV PRN (17:59)
[2022-08-13] MEDS ORDERED: MoRPHine SULFATE 2 MG/ML CARP IV PRN (17:59)
[2022-08-13] MEDS ORDERED: NO NARCOTICS OR SEDATIVES SCH (18:00)
[2022-08-13] MEDS ORDERED: SODIUM CHLORIDE 0.9% 1000ML 1,000 ML IV SCH (18:00)
[2022-08-13] MEDS: SIMETHICONE 80 MG CHEW PO SCH ×2 (21:30→21:41)
[2022-08-13] MEDS: DOCUSATE SODIUM 100 MG CAP PO SCH (21:41)
[2022-08-14] MEDS: OXYTOCIN 20 UNITS in LACTATED RINGER'S 1,000 ML IV SCH (01:03)
--- NOTE | 2022-08-14 05:15 | Obstetrical Progress Note ---
Date of Service <Jocelyn ChaseEmanuel Ahmadi DO - Last Filed: 08/14/22 06:14> August 14, 2022 Assessment & Plan <Jocelyn SEmanuel Ahmadi DO - Last Filed: 08/14/22 06:14> (1) Status post section: plan for d/c Kim, do a trial of OOB and ambulation and then progress diet as tolerated <Samia Dove MD - Last Filed: 08/14/22 06:59> (1) Status post section: Subjective <Jocelyn S. DO Galdino - Last Filed: 08/14/22 06:14> Abril is a 37 y/o female who is POD #1 following delivery at 40 weeks. She reports feeling well overall this morning. Moderate abdominal cramping, pain well managed on analgesics.Kim still in place . Tolerating fluids overnight. Is passing gas, no bowel movement. Has some persistent lochia with some improvement this morning. Currently breast feeding. Review of Systems Denies fever, chills, sweats Denies shortness of breath, difficulty breathing, chest pain, palpitations, chest pressure. Denies breast pain. Denies dysuria. Denies headache or changes in vision. Physical Exam <Jocelyn Solomon Ahmadi DO - Last Filed: 08/14/22 06:14> General: Alert, oriented. No acute distress. Cardiac: Regular rate and rhythm, no murmurs/rubs/gallops. Respiratory: Clear to auscultation bilaterally a/p, no wheezes/rales/rhonchi. No increased work of breathing. Symmetrical chest rise. No respiratory distress. Abdomen: Soft, nontender, nondistended. Uterus: Uterine fundus firm, palpable 2 cm below umbilicus. Surgical dressing clean and dry. Lower Extremities: No lower extremity edema or swelling. No deep calf pain. Results & Data <Jocelyn Solomon Ahmadi DO - Last Filed: 08/14/22 06:14> Vital Signs (Past 12 Hours) Vital Signs Temp Pulse Pulse Resp BP BP BP 08/14/22 04:30 18 08/14/22 03:07 36.9 C 98 H 18 115/67 08/14/22 01:00 18 08/14/22 00:00 18 08/13/22 23:00 18 08/13/22 22:00 16 08/13/22 21:00 18 08/13/22 20:00 18 08/13/22 23:28 36.8 C 93 H 18 108/66 08/13/22 19:25 36.8 C 85 12 118/77 08/13/22 18:38 37.1 C 20 08/13/22 17:50 20 08/13/22 17:20 20 08/13/22 18:33 90 111/65 08/13/22 18:28 100 H 08/13/22 18:23 93 H 08/13/22 18:18 107 H 08/13/22 18:13 103 H 08/13/22 18:08 103 H 08/13/22 18:03 08/13/22 18:03 97 H 08/13/22 18:03 111 H 123/79 08/13/22 17:58 111 H 08/13/22 17:56 116 H 08/13/22 17:53 113 H 08/13/22 17:51 124 H 08/13/22 17:48 100 H 08/13/22 17:46 90 08/13/22 17:45 91 H 131/78 08/13/22 17:41 100 H 08/13/22 17:36 96 H 08/13/22 17:35 102 H 129/76 08/13/22 17:31 98 H 08/13/22 17:26 93 H 08/13/22 17:25 99 H 132/74 08/13/22 17:21 107 H 08/13/22 17:22 105 H 08/13/22 17:16 100 H Pulse Ox O2 Del Method 08/14/22 04:30 97 08/14/22 03:07 94 Room Air 08/14/22 01:00 97 08/14/22 00:00 98 08/13/22 23:00 98 08/13/22 22:00 97 08/13/22 21:00 98 08/13/22 20:00 99 08/13/22 23:28 94 Room Air 08/13/22 19:25 95 Room Air 08/13/22 18:38 08/13/22 17:50 08/13/22 17:20 08/13/22 18:33 08/13/22 18:28 93 08/13/22 18:23 95 08/13/22 18:18 94 08/13/22 18:13 95 08/13/22 18:08 94 08/13/22 18:03 95 08/13/22 18:03 08/13/22 18:03 08/13/22 17:58 91 08/13/22 17:56 91 08/13/22 17:53 90 08/13/22 17:51 91 08/13/22 17:48 89 L 08/13/22 17:46 93 08/13/22 17:45 08/13/22 17:41 93 08/13/22 17:36 93 08/13/22 17:35 08/13/22 17:31 94 08/13/22 17:26 95 08/13/22 17:25 08/13/22 17:21 93 08/13/22 17:22 89 L 08/13/22 17:16 95 <Samia Dove MD - Last Filed: 08/14/22 06:59> Co-Signing Physician Notes Resident Physician Supervision Note: I interviewed and examined the patient. Discussed with Dr. Ahmadi and agree with findings and plan as documented in the note. Any exceptions or clarifications are listed here: [ ] Documented By: Samia Dove MD, FACOG Resident Activity Tracking <Jocelyn Ahmadi DO - Last Filed: 08/14/22 06:14> Resident Involvement: Resident Care Provided Care Provided: OB Delivery (post )
[2022-08-14 07:36] LABS: Basophils # (auto) 0.04 K/uL (0-0.2); Basophils % (auto) 0.2 %; Eosinophils # (auto) 0.03 K/uL (0-0.50); Eosinophils % (auto) 0.2 %; Hematocrit (blood only) 26.7 % (37.0-47.0); Hemoglobin 9.3 g/dl (12.0-16.0); Immature Granulocytes % (auto) 0.5 %; Lymphocytes % (auto) 8.3 %; Mean Corpuscular Hemoglobin 31.3 pg (25.0-34.0); Mean Corpuscular Hgb Conc 34.8 g/dL (32.0-36.0); Mean Corpuscular Volume 89.9 fL (80.0-100.0); Mean Platelet Volume 11.1 fL (9.4-12.4); Monocytes # (auto) 1.14 K/uL (0.11-0.59); Monocytes % (auto) 5.9 %; Neutrophils # (auto) 16.45 K/uL (1.40-6.50); Neutrophils % (auto) 84.9 %; Platelet Count 200 K/uL (130-400); RDW Coefficient of Variation 13.5 % (11.5-14.5); RDW Standard Deviation 43.8 fL (36.4-46.3); Red Blood Count 2.97 M/uL (4.20-5.40); White Blood Count 19.36 K/ul (4.8-10.8)
[2022-08-14] MEDS: FERROUS SULFATE 325 MG TAB PO SCH (08:20)
[2022-08-14] MEDS: DOCUSATE SODIUM 100 MG CAP PO SCH ×2 (08:20→21:05)
[2022-08-14] MEDS: PRENATAL VITAMIN 1 TAB PO SCH (08:21)
[2022-08-14] MEDS: SIMETHICONE 80 MG CHEW PO SCH ×4 (08:21→21:04)
[2022-08-14] MEDS ORDERED: DC INTRASPINAL MORPHINE ONE (11:59)
[2022-08-14] MEDS ORDERED: PROMETHAZINE HCL 25 MG in SODIUM CHLORIDE 0.9% 50 ML IV PRN (12:00)
[2022-08-14] MEDS ORDERED: diphenhydrAMINE 50 MG/ML VIAL IV PRN (12:00)
[2022-08-14] MEDS ORDERED: diphenhydrAMINE Capsule 25 MG CAP PO PRN (12:00)
[2022-08-14] MEDS ORDERED: ONDANSETRON INJ 2 MG/ML 2 ML VIAL IV PRN (12:00)
[2022-08-14] MEDS: IBUPROFEN 600 MG TAB PO PRN ×3 (12:18→21:04)
[2022-08-14] MEDS: oxyCODONE/ACETAMINOPHEN 5mg/325mg TAB PO PRN ×2 (12:18→16:52)
[2022-08-14] MEDS ORDERED: bisacodyL 5 MG TABEC PO SCH (20:00)
[2022-08-14] MEDS: FLUoxetine HCL 20 MG CAP PO SCH (21:05)
[2022-08-14] MEDS ORDERED: CALCIUM CARBONATE 500 MG CHEWABLE TAB PO PRN ×2 (21:25→21:27)
[2022-08-15] MEDS: oxyCODONE/ACETAMINOPHEN 5mg/325mg TAB PO PRN ×4 (00:05→15:59)
--- NOTE | 2022-08-15 06:00 | Obstetrical Progress Note ---
Date of Service <Jocelyn AhmadiDO - Last Filed: 08/15/22 06:46> August 15, 2022 Assessment & Plan <Jocelyn AhmadiDO - Last Filed: 08/15/22 06:46> (1) Status post section: Feels well today. Eating well, voiding well, ambulating well. - Routine care -- OOB, ambulation, diet progression as tolerated - After discharge will have 6 week f/u - Discharge instructions reviewed <Noris Espinal MD, FACOG - Last Filed: 08/15/22 07:29> (1) Status post section: Day #:: 2 Subjective <Jocelynsuzy AhmadiDO - Last Filed: 08/15/22 06:46> Abril is a 37 y/o female who is POD #2 following delivery at 40 weeks. She reports feeling well overall this morning. Moderate abdominal cramping, pain well managed on analgesics. Voiding. Tolerating full diet. Is passing gas and had a bowel movement. Has some persistent lochia with some improvement this morning. Currently breast feeding. Review of Systems Denies fever, chills, sweats Denies shortness of breath, difficulty breathing, chest pain, palpitations, chest pressure. Denies breast pain. Denies dysuria. Denies headache or changes in vision. Physical Exam <Jocelynsuzy AhmadiDO - Last Filed: 08/15/22 06:46> General: Alert, oriented. No acute distress. Cardiac: Regular rate and rhythm, no murmurs/rubs/gallops. Respiratory: Clear to auscultation bilaterally a/p, no wheezes/rales/rhonchi. No increased work of breathing. Symmetrical chest rise. No respiratory distress. Abdomen: Soft, nontender, nondistended. Uterus: Uterine fundus firm, palpable 2 cm below umbilicus. Surgical incision well healing without discharge. Lower Extremities: No lower extremity edema or swelling. No deep calf pain. Results & Data <Jocelyn SEmanuel Ahmadi DO - Last Filed: 08/15/22 06:46> Vital Signs (Past 12 Hours) Vital Signs Temp Pulse Resp BP Pulse Ox O2 Del Method 08/14/22 23:55 Room Air 08/14/22 23:55 36.4 C L 89 16 109/69 96 Room Air <Noris Espinal MD, FACOG - Last Filed: 08/15/22 07:29> Co-Signing Physician Notes Resident Physician Supervision Note: I was present with Dr. Ahmadi during the history and exam. I discussed the case with the resident and agree with the findings and plan as documented in the note . Any exceptions or clarifications are listed here: pt doing well and sure she wants to go home today, not even 48hr yet so enc that she take her time. eating, voiding, ambulating without issue. pain meds helping. breast feeding is going well. abd soft ff 2 down nt, incision c/d/i. ext nt calves. labs pending this am, pt aware to at least take fe bid x 6wks. breast, rh neg, baby rh neg, no rhogam indicated, ri. instructions reviewed and plan f/u 6 wks pp check. pt desires dc and so ordered. Documented By: Noris Espinal MD, FACOG Resident Activity Tracking <Jocelyn Ahmadi, DO - Last Filed: 08/15/22 06:46> Resident Involvement: Resident Care Provided Care Provided: OB Delivery (post )
[2022-08-15 06:59] LABS: Hematocrit (blood only) 25.3 % (37.0-47.0); Hemoglobin 8.8 g/dl (12.0-16.0)
[2022-08-15] MEDS: IBUPROFEN 600 MG TAB PO PRN ×4 (07:51→19:26)
[2022-08-15] MEDS: DOCUSATE SODIUM 100 MG CAP PO SCH ×2 (07:51→19:26)
[2022-08-15] MEDS: PRENATAL VITAMIN 1 TAB PO SCH (07:51)
[2022-08-15] MEDS: SIMETHICONE 80 MG CHEW PO SCH ×4 (07:51→19:26)
[2022-08-15] MEDS: FERROUS SULFATE 325 MG TAB PO SCH (07:51)
[2022-08-15] MEDS ORDERED: bisacodyL 10 MG SUPP PR PRN (16:06)
[2022-08-15] MEDS: FLUoxetine HCL 20 MG CAP PO SCH (19:26)
[2022-08-16] MEDS: oxyCODONE/ACETAMINOPHEN 5mg/325mg TAB PO PRN ×2 (06:35→12:13)
--- NOTE | 2022-08-16 08:32 | Obstetrical Progress Note ---
Date of Service August 16, 2022 Assessment & Plan (1) Status post section: day 3 status post primary . Patient doing well today. Patient is stable for discharge and was provided both written and verbal discharge instructions. Plan for 6 week follow-up or otherwise as needed Subjective Ambulation: ambulating normally Voiding: no voiding problems Passing Gas:: Yes Diet Tolerance:: regular diet Lochia:: Moderate Feeding Type:: breast feeding Physical Exam Constitutional WD/WN, vitals as above Respiratory normal respiratory effort; no respiratory distress and no labored breathing Cardiovascular no calf tenderness Gastrointestinal (Abdomen) Inspection/Auscultation: abdomen normal to inspection; abdomen not distended Percussion/Palpation: abdomen soft; abdomen nontender, no guarding and abdomen not rigid incision healing well. Genitourinary OB Exam Abdomen: + fundal height Fundus: + firm and + relation to umbilicus (Below); not tender or not boggy Results & Data Vital Signs (Past 12 Hours) Vital Signs Temp Pulse Resp BP Pulse Ox O2 Del Method 08/15/22 23:50 36.8 C 73 16 108/67 94 Room Air
[2022-08-16] MEDS: DOCUSATE SODIUM 100 MG CAP PO SCH (08:48)
[2022-08-16] MEDS: FERROUS SULFATE 325 MG TAB PO SCH (08:49)
[2022-08-16] MEDS: PRENATAL VITAMIN 1 TAB PO SCH (08:49)
[2022-08-16] MEDS: SIMETHICONE 80 MG CHEW PO SCH ×2 (08:49→12:12)
[2022-08-16] MEDS: IBUPROFEN 600 MG TAB PO PRN (12:13)
--- NOTE | 2022-08-20 14:32 | Discharge Summary ---
Date of Service August 20, 2022 Admission HPI Per Admitting Provider Patient is a 37yowf with iup at 40 0/7 presents to labor and delivery c/o srom at 10pm, constant gushing. Notes fluid blood tinged. Has also started noting contractions. +fm. Was in earlier yesterday for some prolonged monitoring. Was yanet at that time but not feeling it. and Delivery Plans Velamentous Cord Insertion *Growth US Q4wks @28wks *Weekly NSTs @36wks IVF/ICSI * Echo [facility]- WNL *Growth US Q4wks @28wks *Weekly NSTs @36wks *Weekly ANITA's @36wks(ICSI only) AMA *NSTs weekly at 36weeks Baby asa for ama and ivf Need for Rhogam d/t Rh negative mother -Rhogam given 06/02/2022- OB Labs: Blood Type A Negative 07/02/22 Antibody Screen POSITIVE A 07/02/22 Hemoglobin 11.8 g/dl (12.0-16.0) L 05/20/22 Hematocrit 33.8 % (34.1-44.9) L 05/20/22 Mean Corpuscular Volume 86.6 fL (80.0-100.0) 02/26/22 Platelet Count 305 K/uL (130-400) 02/26/22 Rubella IgG Antibody Immune (Immune) 02/26/22 Rapid Plasma Reagin Nonreactive (Nonreactive) 02/26/22 Hepatitis B Surface Antigen. NON-REACTIVE (NON-REACTIVE) 02/26/22 Hepatitis C Antibody Neg (Neg) 11/25/18 Hepatitis C Antibody (EIA) NON-REACTIVE (NON-REACTIVE) 02/26/22 HIV (1&2) Ag and Ab Confirmation NON-REACTIVE (NON-REACTIVE) 02/26/22 Glucose 1 Hour 50 gm Load 155 mg/dl (70-130) H 05/20/22 OB Optional Labs: Chlamydia trachomatis RNA Not Detected (NotDetected) 02/04/22 Neisseria gonorrhoeae RNA Not Detected (NotDetected) 02/04/22 Thyroid Stimulating Hormone (TSH) 2.250 uIu/ml (0.300-4.500) 08/12/21 Labs Reviewed: neg parent screening at [facility] on embryo negative. gbs negative Discharge Data Consultations 08/13/22 01:46 Consult Anesthesiology Stat Procedures Performed Operation Date: 08/13/22 14:10 Actual Procedures p Section in LD with the of a live male child at 1511. - Samia Dove MD Hospital Course (1) Status post section: day 3 status post primary . Patient doing well today. Patient is stable for discharge and was provided both written and verbal discharge instructions. Plan for 6 week follow-up or otherwise as needed Coding Level of Care Code None Diagnoses Status post section Z98.891
== END 2022-08-16 13:35 | disposition home or self-care (01) | DRG 787 ==
LOC: OPB 01:30 → 4S1 01:31 → 4E2 19:03